=== PATIENT | female | born 1955 | race Caucasian/White ===

== ENCOUNTER 2017-04-27 15:57 | Emergency (ER) | payer OTHER ==
[~2017-04-27] VITALS: Ht 177.8 cm; Wt 89.7 kg
[2017-04-27] MEDS ORDERED: CLONAZEPAM0.5 MG PO (17:39)
[2017-04-27] MEDS ORDERED: MAXZIDE 75/501 EACH PO (17:39)
[2017-04-27] MEDS ORDERED: ATORVASTATIN CA10 MG PO (17:39)
[2017-04-27 19:49] LABS: CHLORIDE 104 mEq/L (99-109); SODIUM 137 mEq/L (136-147)
[2017-04-27 19:54] LABS: GFR ESTIMATE (CALCULATED) > 59 mL/min/
[2017-04-27 19:55] LABS: UREA NITROGEN (BUN) 24 mg/dL (9-23)
[2017-04-27 19:58] LABS: TROP-I INTERPRETATION NEGATIVE; TROPONIN-I < 0.01 ng/mL (0.0-0.30)
[2017-04-27 20:05] LABS: GLUCOSE 109 mg/dL (70-99); MCH 27.9 PG (29.0-34.0); MCV 87.2 FL (83-99); MEAN PLAT.VOLUME 10.3 uM^3 (9.5-12.4); PLATELET COUNT 327 K/uL (156-360); RBC DIS.WIDTH-CV 13.9 % (11.8-14.6); RBC DIS.WIDTH-SD 44.2 % (39-53); RED BLOOD COUNT 3.44 M/uL (3.80-5.20); WHITE BLOOD COUNT 7.8 K/uL (4.1-10.2)
[2017-04-27 20:06] LABS: ANION GAP 7 MEQ/L (2-14)
[2017-04-27] MEDS ORDERED: CARBAMAZEPINE100 MG PO (20:30)
[2017-04-27 20:51] VITALS: BP 106/54
== END 2017-04-27 20:58 | disposition home or self-care (01) ==
LOC: EME 15:57
PROVIDERS: Emergency Medicine
DX: G50.0 Trigeminal neuralgia (principal); E78.5 Hyperlipidemia, unspecified; Z87.891 Personal history of nicotine dependence
CPT/HCPCS: 80048; 84484; 85027; 93005; 99281; 99285